=== PATIENT | female | born 2000 | race Caucasian/White ===

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

== ENCOUNTER 2018-03-03 20:04 | Emergency (ER) | payer BC, OTHER ==
[~2018-03-03] VITALS: Ht 172.7 cm; Wt 107.5 kg
[2018-03-03 21:21] VITALS: BP 117/84
== END 2018-03-03 21:22 | disposition home or self-care (01) ==
LOC: ED 20:04
DX: J06.9 Acute upper respiratory infection, unspecified (principal); F17.210 Nicotine dependence, cigarettes, uncomplicated